=== PATIENT | female | born 1950 | race Caucasian/White ===

== ENCOUNTER 2021-01-04 15:11 | Outpatient (CLI) | payer MEDICARE | END 2021-01-04 15:12 | disposition home or self-care (01) | LOC: CSHULT 15:11 | PROVIDERS: ATTEND Nurse Practitioner Family | DX: M79.604 Pain in right leg (principal); R09.89 Other specified symptoms and signs involving the circulatory and respiratory systems; I73.9 Peripheral vascular disease, unspecified | CPT/HCPCS: 93970 ==